=== PATIENT | female | born 1945 | race African-American/Black ===

== ENCOUNTER 2016-06-17 07:47 | Emergency (ER) | payer OTHER ==
[2016-06-17 07:59] VITALS: TEMP 98.7; BMI 22.6
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
[2016-06-17 09:42] VITALS: BP 127/71; PULSE 76
== END 2016-06-17 09:43 | disposition home or self-care (01) ==
LOC: JER 07:47
DX: M54.2 Cervicalgia (principal); V43.52XA Car driver injured in collision with other type car in traffic accident, initial encounter; Y93.89 Activity, other specified; Y92.410 Unspecified street and highway as the place of occurrence of the external cause; J45.909 Unspecified asthma, uncomplicated; I10 Essential (primary) hypertension
CPT/HCPCS: 72170-TC; 99282-25